=== PATIENT | female | born 1995 | race African-American/Black ===

== ENCOUNTER 2019-03-02 11:46 | Inpatient (IN) | payer OTHER ==
[~2019-03-02] VITALS: Ht 160 cm; Wt 64.4 kg
[2019-03-02] MEDS ORDERED: Lidocaine 2% Visc 15ml soln ORAL ONE (12:00)
[2019-03-02] MEDS ORDERED: Dicyclomine HCl 10mg/5ml oral soln ORAL ONE (12:00)
[2019-03-02] MEDS ORDERED: Mylanta II UD 30ml ORAL ONE (12:00)
[2019-03-02 12:36] LABS: APPEARANCE,URINE SLIGHTLY CLOUDY; BILIRUBIN, URINE NEGATIVE (NEGATIVE); GLUCOSE, URINE (UA) NEGATIVE (NEGATIVE); KETONES,URINE NEGATIVE (NEGATIVE); LEUKOCYTE ESTERASE ,URINE 1+ (NEGATIVE); NITRITE,URINE NEGATIVE (NEGATIVE); PH,URINE 5 (4.5-8.0); PROTEIN,URINE 1+ (NEGATIVE); UROBILINOGEN,URINE NORMAL MG/DL (0.0-1.0)
[2019-03-02 12:37] LABS: COLOR,URINE YELLOW
[2019-03-02 12:45] VITALS: BP 112/72
--- NOTE | 2019-03-02 12:48 | NUR ---
ED Nurse Note: PT BROUGHT IN BY R68 FROM [facility]. AOX4. PT C/O GENERALIZED ABDOMINAL PAIN, 10/10 X THIS AM ALONG WITH MULTIPLE EPISODES OF VOMITING AND DIARRHEA. LAST BM X THIS AM WHICH PT STATES WAS LIQUID. ACTIVE BOWEL SOUNDS IN ALL QUADRANTS. ABDOMEN NONDISTENDED AND NONTENDER TO PALPATION. PT STATES HER FRIEND IS HAVING SIMILAR SYMPTOMS AFTER EATING SOMETHING TOGETHER LAST NIGHT.
[2019-03-02 12:52] LABS: ANION GAP 9 mmol/L (5-15); BLOOD UREA NITROGEN 15 mg/dL (7-18); CARBON DIOXIDE 26 MMOL/L (21-32); CHLORIDE 104 MMOL/L (98-107); CREATININE 0.9 MG/DL (0.55-1.30); POTASSIUM 4.3 MMOL/L (3.5-5.1); SODIUM 139 MMOL/L (136-145)
[2019-03-02 12:57] LABS: ALANINE AMINOTRANSFERASE 26 U/L (12-78); ALBUMIN 3.8 G/DL (3.4-5.0); ALBUMIN/GLOBULIN RATIO 0.9 (1.0-2.7); ALKALINE PHOSPHATASE 75 U/L (46-116); ASPARTATE AMINO TRANSFERASE 20 U/L (15-37); BILIRUBIN,TOTAL 0.5 MG/DL (0.2-1.0)
[2019-03-02 13:06] LABS: HEMATOCRIT 41.7 % (37.0-47.0); HEMOGLOBIN 13.3 G/DL (12.0-16.0); MEAN CORPUSCULAR VOLUME 88 FL (80-99); PLATELET COUNT 185 K/UL (150-450); RED BLOOD COUNT 4.75 M/UL (4.20-5.40); RED CELL DISTRIBUTION WIDTH 12.6 % (11.6-14.8); WHITE BLOOD COUNT 13.2 K/UL (4.8-10.8)
[2019-03-02] MEDS ORDERED: Morphine Sulfate 4mg/ml Inj (IV USE ONLY) IVP ONE (13:45)
--- NOTE | 2019-03-02 14:09 | Emergency Room Report ---
History of Present Illness General Chief Complaint: Abdominal Pain Source: Patient (Cleveland Treviño MD) Present Illness HPI 23-year-old female came in by EMS because of abdominal pain with vomiting and diarrhea. Symptoms started this morning. Pain is dull, 6 out of 10, nonradiating. Notes multiple episodes of vomiting and diarrhea. States that her family members also have similar symptoms. Denies fevers or chills. Denies recent antibiotic use. Denies recent travel. No other aggravating relieving factors. Denies any other associated symptoms (Cleveland Treviño MD) Allergies: Coded Allergies: No Known Allergies (Unverified , 03/02/19) Patient History Past Medical History: other - pancreatitis Past Surgical History: none Pertinent Family History: none Social History: Denies: smoking, alcohol use, drug use Now: No Immunizations: UTD Reviewed Nursing Documentation: PMH: Agreed; PSxH: Agreed (Cleveland Treviño MD) Nursing Documentation-PMH Past Medical History: No Stated History Hx Gastrointestinal Problems: Yes - Pancreatitis (Cleveland Treviño MD) Review of Systems All Other Systems: negative except mentioned in HPI (Cleveland Treviño MD) Physical Exam Vital Signs Date Time Temp Pulse Resp B/P (MAP) Pulse Ox O2 Delivery O2 Flow Rate FiO2 03/02/19 11:40 97.7 76 16 106/66 97 Room Air Sp02 EP Interpretation: reviewed, normal General Appearance: no apparent distress, alert, GCS 15, non-toxic Head: normocephalic, atraumatic Eyes: bilateral eye normal inspection, bilateral eye PERRL ENT: hearing grossly normal, normal pharynx, no angioedema, normal voice Neck: full range of motion, supple/symm/no masses Respiratory: chest non-tender, lungs clear, normal breath sounds, speaking full sentences Cardiovascular #1: regular rate, rhythm, no edema Cardiovascular #2: 2+ carotid (R), 2+ carotid (L), 2+ radial (R), 2+ radial (L) , 2+ dorsalis pedis (R), 2+ dorsalis pedis (L) Gastrointestinal: normal bowel sounds, soft, non-distended, no guarding, no rebound, tenderness - epigastric Rectal: deferred Genitourinary: normal inspection, no CVA tenderness Musculoskeletal: back normal, gait/station normal, normal range of motion, non- tender Neurologic: alert, oriented x3, responsive, motor strength/tone normal, sensory intact, speech normal Psychiatric: judgement/insight normal, memory normal, mood/affect normal, no suicidal/homicidal ideation Reflexes: 3+ bicep (R), 3+ bicep (L), 3+ tricep (R), 3+ tricep (L), 3+ knee (R) , 3+ knee (L) Skin: normal color, no rash, warm/dry, well hydrated Lymphatic: no adenopathy (Cleveland Treviño MD) Medical Decision Making Diagnostic Impression: Primary Impression: Pancreatitis Additional Impression: Gastroenteritis Labs Test 03/02/19 10:05 White Blood Count 13.2 K/UL (4.8-10.8) Red Blood Count 4.75 M/UL (4.20-5.40) Hemoglobin 13.3 G/DL (12.0-16.0) Hematocrit 41.7 % (37.0-47.0) Mean Corpuscular Volume 88 FL (80-99) Mean Corpuscular Hemoglobin 28.1 PG (27.0-31.0) Mean Corpuscular Hemoglobin Concent 32.0 G/DL (32.0-36.0) Red Cell Distribution Width 12.6 % (11.6-14.8) Platelet Count 185 K/UL (150-450) Mean Platelet Volume 6.4 FL (6.5-10.1) Neutrophils (%) (Auto) % (45.0-75.0) Lymphocytes (%) (Auto) % (20.0-45.0) Monocytes (%) (Auto) % (1.0-10.0) Eosinophils (%) (Auto) % (0.0-3.0) Basophils (%) (Auto) % (0.0-2.0) Differential Total Cells Counted 100 Neutrophils % (Manual) 86 % (45-75) Lymphocytes % (Manual) 9 % (20-45) Monocytes % (Manual) 5 % (1-10) Eosinophils % (Manual) 0 % (0-3) Basophils % (Manual) 0 % (0-2) Band Neutrophils 0 % (0-8) Platelet Estimate Adequate Platelet Morphology Normal Red Blood Cell Morphology Normal Urine Color Yellow Urine Appearance Slightly cloudy Urine pH 5 (4.5-8.0) Urine Specific [place] 1.025 (1.005-1.035) Urine Protein 1+ (NEGATIVE) Urine Glucose (UA) Negative (NEGATIVE) Urine Ketones Negative (NEGATIVE) Urine Blood 5+ (NEGATIVE) Urine Nitrite Negative (NEGATIVE) Urine Bilirubin Negative (NEGATIVE) Urine Urobilinogen Normal MG/DL (0.0-1.0) Urine Leukocyte Esterase 1+ (NEGATIVE) Urine RBC 5-10 /HPF (0 - 2) Urine WBC 2-4 /HPF (0 - 2) Urine Squamous Epithelial Cells Moderate /LPF (NONE/OCC) Urine Bacteria Few /HPF (NONE) Urine HCG, Qualitative Negative (NEGATIVE) Sodium Level 139 MMOL/L (136-145) Potassium Level 4.3 MMOL/L (3.5-5.1) Chloride Level 104 MMOL/L (98-107) Carbon Dioxide Level 26 MMOL/L (21-32) Anion Gap 9 mmol/L (5-15) Blood Urea Nitrogen 15 mg/dL (7-18) Creatinine 0.9 MG/DL (0.55-1.30) Estimat Glomerular Filtration Rate > 60 mL/min (>60) Glucose Level 88 MG/DL (74-106) Calcium Level 9.0 MG/DL (8.5-10.1) Total Bilirubin 0.5 MG/DL (0.2-1.0) Aspartate Amino Transf (AST/SGOT) 20 U/L (15-37) Alanine Aminotransferase (ALT/SGPT) 26 U/L (12-78) Alkaline Phosphatase 75 U/L (46-116) Total Protein 7.9 G/DL (6.4-8.2) Albumin 3.8 G/DL (3.4-5.0) Globulin 4.1 g/dL Albumin/Globulin Ratio 0.9 (1.0-2.7) Lipase 627 U/L (73-393) Human Chorionic Gonadotropin, Qual Negative (NEGATIVE) (Cleveland Treviño MD) Last Vital Signs Date Time Temp Pulse Resp B/P (MAP) Pulse Ox O2 Delivery O2 Flow Rate FiO2 03/02/19 12:45 98.0 74 18 112/72 98 Room Air (Cleveland Treviño MD) Disposition: ADMITTED INPATIENT Condition: Serious Referrals: [facility] (PCP) Cleveland Treviño MD Mar 02, 2019 14:09 Julio Krause MD Mar 03, 2019 06:09
[2019-03-02] MEDS ORDERED: NKM (14:22)
[2019-03-02 14:45] VITALS: BP 108/70
--- NOTE | 2019-03-02 16:20 | NUR ---
ED Nurse Note: RAMONA AUNT: [phone]
--- NOTE | 2019-03-02 16:23 | NUR ---
ED Nurse Note: [facility] CALLED FOR PT TRANSFER. REPORT GIVEN TO KAIN HUSSEIN. PT TAKEN UP TO [facility] VIA GURNEY WITH ALL BELONGINGS. VSS.
[2019-03-02 17:00] VITALS: BP 96/67
[2019-03-02] MEDS ORDERED: Acetaminophen 500mg (ES) tab ORAL PRN (17:48)
--- NOTE | 2019-03-02 18:43 | NUR ---
NURSE NOTES: Received pt from KAIN BOYER at 1645. All admission assessments and instructions done and pt verbally confirmed to understand all. pt is alert and orient x4. pt is in RA, No SOB or acute respiratory distress noted. pt has intact iv access RAC 20g is running well. no complain of pain and nausea and vomiting and abdominal pain at this moment. called Dr ORTIZ, all admission orders noted and carried out. pt is NPO. all needs attended, bed is locked and is in the lowest position. call light within easy reach will continue to monitor.
--- NOTE | 2019-03-02 19:38 | NUR ---
HAND-OFF: Report given to KAIN OTTO.
--- NOTE | 2019-03-02 19:42 | NUR ---
NURSE NOTES: Received patient comfortably resting in bed without complaints.
[2019-03-02 20:00] VITALS: BP 90/44
[2019-03-02 23:43] VITALS: BP 97/50
--- NOTE | 2019-03-03 04:00 | NUR ---
NURSE NOTES: Patient refused IV reinsertion at this time.
[2019-03-03 04:12] VITALS: BP 102/55
[2019-03-03 07:10] LABS: BASOPHILS % (AUTO) 0.8 % (0.0-2.0); EOSINOPHILS % (AUTO) 0.8 % (0.0-3.0); HEMATOCRIT 34.6 % (37.0-47.0); HEMOGLOBIN 11.4 G/DL (12.0-16.0); LYMPHOCYTES % (AUTO) 18.8 % (20.0-45.0); MEAN CORPUSCULAR VOLUME 87 FL (80-99); MONOCYTES % (AUTO) 8.5 % (1.0-10.0); NEUTROPHILS % (AUTO) 71.2 % (45.0-75.0); PLATELET COUNT 182 K/UL (150-450); RED BLOOD COUNT 3.96 M/UL (4.20-5.40); RED CELL DISTRIBUTION WIDTH 12.1 % (11.6-14.8); WHITE BLOOD COUNT 7.3 K/UL (4.8-10.8)
--- NOTE | 2019-03-03 07:16 | NUR ---
HAND-OFF: Report given to Carloz Le RN/Lolis Negrete RN..
[2019-03-03 07:24] LABS: ALANINE AMINOTRANSFERASE 20 U/L (12-78); ALBUMIN 2.9 G/DL (3.4-5.0); ALBUMIN/GLOBULIN RATIO 0.9 (1.0-2.7); ALKALINE PHOSPHATASE 58 U/L (46-116); ANION GAP 7 mmol/L (5-15); ASPARTATE AMINO TRANSFERASE 16 U/L (15-37); BILIRUBIN,TOTAL 0.5 MG/DL (0.2-1.0); BLOOD UREA NITROGEN 8 mg/dL (7-18); CALCIUM 8.4 MG/DL (8.5-10.1); CARBON DIOXIDE 27 MMOL/L (21-32); CHLORIDE 106 MMOL/L (98-107); CREATININE 0.8 MG/DL (0.55-1.30); POTASSIUM 3.2 MMOL/L (3.5-5.1); SODIUM 140 MMOL/L (136-145)
--- NOTE | 2019-03-03 07:25 | NUR ---
NURSE NOTES: RN received pt in stable condition, sleeping in bed. No acute distress. Bed in low locked position, call light within reach. Will continue to monitor.
[2019-03-03 08:00] VITALS: BP 100/73
--- NOTE | 2019-03-03 08:54 | Diagnostic Imaging Report ---
Indication: Abdominal pain Technique: Underwood-scale and duplex images of the upper abdomen were obtained Comparison: none Findings: Gallbladder is unremarkable, without stones, wall thickening, nor pericholecystic fluid. Sonographic Tavares's sign is negative. Common bile duct measures 3 mm in diameter. No intrahepatic biliary ductal dilatation. Liver demonstrates normal echogenicity, no focal abnormality. Portal vein and hepatic veins are patent. Pancreas is unremarkable. Spleen is unremarkable. Left kidney measures 11 cm in length. Right kidney measures 11.1 cm length. Both kidneys demonstrate normal echogenicity. There is no hydronephrosis. No focal abnormality . Non-aneurysmal abdominal aorta . Impression: Negative
--- NOTE | 2019-03-03 09:39 | NUR ---
*-* INSURANCE *-* ALL AVAILABLE CLINICALS HAVE BEEN FAXED TO: [employer] (GENERIC FAX#) CHECK BAR FOR UPDATED INFO [employer] SCHWARZ F:[phone]
--- NOTE | 2019-03-03 09:42 | NUR ---
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 VOMITING . GASTROENTERITIS VS: BP 106/66, P 74, T 98.0, RR 18, SpO2 98 WBC 13.2, RBC 3.96, Hgb 11.4, Hct 34.6, K 3.2, URINE: BLOOD 5+, BACTERIA FEW IS:NS x1L IV PEPCID 20mg IVP ZOFRAN 4mg IVP MORPHINE 4mg IVP ADMITTED TO MED/SURG DC PLAN: RETURN HOME
[2019-03-03 12:00] VITALS: BP 107/59
--- NOTE | 2019-03-03 13:04 | GI Initial Consult Note ---
History of Present Illness General Date patient seen: Mar 03, 2019 Time patient seen: 12:58 Reason for Hospitalization: Abdominal Pain Referring physician: EDU ORTIZ Reason for Consultation: PANCREATITIS Present Illness HPI 23-year-old female came in by EMS because of abdominal pain with vomiting and diarrhea. Symptoms started this morning. Pain is dull, 6 out of 10, nonradiating. Notes multiple episodes of vomiting and diarrhea. States that her family members also have similar symptoms. Denies fevers or chills. Denies recent antibiotic use. Denies recent travel. No other aggravating relieving factors. Denies any other associated symptoms GI consulted for pancreatitis. Pt seen, awake A&Ox4 NAD with no complaints or current abdominal pain, N/V or diarrhea. The patient is ambulatory, had just taken a shower. The patient previous reported severe abdominal pain after eating large amounts of junk food. She denies any use of tobacco, alcohol or drug use. States no medical history. Has no history of endoscopy or colonoscopy. Presented with elevated lipase levels of 627 which have now resolved. I had advanced her diet this morning, in which she tolerated without any pain. Home Meds Reported Medications No Known Medications* (NKM - No Known Medications*) ., 0 ., 0 Refills 03/02/19 Med list reviewed/reconciled: Yes Allergies: Coded Allergies: No Known Allergies (Unverified , 03/02/19) Patient History History Provided By: Patient, Medical Record Past Medical History: none PMH Narrative Past Medical History: other - pancreatitis Past Surgical History: none Pertinent Family History: none Social History: Denies: smoking, alcohol use, drug use Now: No Immunizations: UTD Reviewed Nursing Documentation: PMH: Agreed; PSxH: Agreed Social History: Denies: smoking, alcohol use, drug use, other Review of Systems All Other Systems: negative except mentioned in HPI Physical Exam Vital Signs Date Time Temp Pulse Resp B/P (MAP) Pulse Ox O2 Delivery O2 Flow Rate FiO2 03/02/19 11:40 97.7 76 16 106/66 97 Room Air Sp02 EP Interpretation: reviewed, normal Labs Laboratory Tests Test 03/03/19 05:35 White Blood Count 7.3 K/UL (4.8-10.8) Red Blood Count 3.96 M/UL (4.20-5.40) L Hemoglobin 11.4 G/DL (12.0-16.0) L Hematocrit 34.6 % (37.0-47.0) L Mean Corpuscular Volume 87 FL (80-99) Mean Corpuscular Hemoglobin 28.8 PG (27.0-31.0) Mean Corpuscular Hemoglobin Concent 33.0 G/DL (32.0-36.0) Red Cell Distribution Width 12.1 % (11.6-14.8) Platelet Count 182 K/UL (150-450) Mean Platelet Volume 6.1 FL (6.5-10.1) L Neutrophils (%) (Auto) 71.2 % (45.0-75.0) Lymphocytes (%) (Auto) 18.8 % (20.0-45.0) L Monocytes (%) (Auto) 8.5 % (1.0-10.0) Eosinophils (%) (Auto) 0.8 % (0.0-3.0) Basophils (%) (Auto) 0.8 % (0.0-2.0) Sodium Level 140 MMOL/L (136-145) Potassium Level 3.2 MMOL/L (3.5-5.1) L Chloride Level 106 MMOL/L (98-107) Carbon Dioxide Level 27 MMOL/L (21-32) Anion Gap 7 mmol/L (5-15) Blood Urea Nitrogen 8 mg/dL (7-18) Creatinine 0.8 MG/DL (0.55-1.30) Estimat Glomerular Filtration Rate > 60 mL/min (>60) Glucose Level 82 MG/DL (74-106) Calcium Level 8.4 MG/DL (8.5-10.1) L Total Bilirubin 0.5 MG/DL (0.2-1.0) Aspartate Amino Transf (AST/SGOT) 16 U/L (15-37) Alanine Aminotransferase (ALT/SGPT) 20 U/L (12-78) Alkaline Phosphatase 58 U/L (46-116) Total Protein 6.3 G/DL (6.4-8.2) L Albumin 2.9 G/DL (3.4-5.0) L Globulin 3.4 g/dL Albumin/Globulin Ratio 0.9 (1.0-2.7) L Lipase 83 U/L (73-393) General Appearance: well appearing, no apparent distress, alert Head: normocephalic EENT: PERRL/EOMI, normal ENT inspection Neck: supple Respiratory: normal breath sounds, no respiratory distress Cardiovascular: normal rate Gastrointestinal: normal inspection, non tender, soft, normal bowel sounds, non -distended Rectal: deferred Genitourinary: no CVA tenderness Musculoskeletal: normal inspection, back normal Neurologic: normal inspection, alert, oriented x3, responsive Psychiatric: normal inspection, judgement/insight normal, memory normal Skin: normal inspection, normal color, no rash, warm/dry, palpation normal, well hydrated Lymphatic: normal inspection, no adenopathy Current Medications Current Medications Medications (Trade) Dose Ordered Sig/Cuca Route PRN Reason Start Time Stop Time Status Last Admin Dose Admin Acetaminophen (Tylenol) 500 mg Q6H PRN ORAL Mild Pain/Temp > 100.5 03/02/19 17:48 04/01/19 17:47 Potassium Chloride (K-Dur) 40 meq ONCE ORAL 03/03/19 11:45 03/03/19 13:30 Sodium Chloride 1,000 ml @ 75 mls/hr [id number] IV 03/02/19 18:30 04/01/19 18:29 03/02/19 17:55 GI: Plan Problems: (1) Pancreatitis (2) Gastroenteritis Plan pancreatitis, elevated lipase levels now resolved patient tolerated regular diet Hcg negative utox pending okay for DC per GI standpoint symptomatic treatment regular diet pain mgmt ppi healthy diet education given electrolyte correction Discussed with Dr. Richards. Thank you for this patient referral, we will follow. The patient was seen and examined at bedside and all new and available data was reviewed in the patients chart. I agree with the above findings, impression and plan. (Patient seen earlier today. Signature stamp does not reflect patient encounter time.). - MD Nelida [facility] UTIL[facility] REVIEW NURSE Mar 03, 2019 13:04
[2019-03-03 16:00] VITALS: BP 105/68
--- NOTE | 2019-03-03 19:24 | NUR ---
HAND-OFF: Report given to KAIN Sy.
--- NOTE | 2019-03-03 19:34 | NUR ---
NURSE NOTES: Lab called and reported a positive urine screen for THC, Dr. Payton notified, left message, no new orders received at this time.
--- NOTE | 2019-03-03 19:35 | NUR ---
NURSE NOTES: Received patient in no apparent distress. A&OX4. No IV site noted. No c/o pain at this time. Patient says " I feel much better now". Bed in lowest position. Call light within reach. Will continue to monitor.
[2019-03-03 20:00] VITALS: BP 136/87
--- NOTE | 2019-03-03 23:20 | NUR ---
NURSE NOTES: New IV inserted. Right AC G24, patent and intact.
--- NOTE | 2019-03-03 23:30 | Consultation ---
DATE OF CONSULTATION: 03/03/2019 INFECTIOUS DISEASE CONSULTATION CONSULTING PHYSICIAN: Jay Myers M.D. PRIMARY ATTENDING PHYSICIAN: Renata Payton M.D. REASON FOR CONSULT: Acute pancreatitis. HISTORY OF PRESENT ILLNESS: This is a 23-year-old female admitted yesterday from home complaining of nausea, vomiting, abdominal pain, and diarrhea. The patient states that in the past, she had history of pancreatitis. Today, she is feeling much better and can tolerate food. PAST MEDICAL HISTORY: As mentioned acute pancreatitis. MEDICATIONS: Getting sodium chloride and Tylenol. ALLERGIES: No known drug allergies. SOCIAL HISTORY: Single. Denies alcohol, drug, or smoking. REVIEW OF SYSTEMS: Denies fever, chills, or coughing. Nausea and vomiting resolved today. No vomiting today. No significant pain at the time of examination. No urinary problem. PHYSICAL EXAMINATION: VITAL SIGNS: Temperature 98.2, pulse 63, and blood pressure is 100/73. GENERAL APPEARANCE: Well-developed, no acute distress. HEAD AND NECK: Suring conjunctiva. HEART: Normal rate. LUNGS: Clear. ABDOMEN: Soft and nontender. EXTREMITIES: No edema. LABORATORY AND DIAGNOSTIC DATA: WBC today 7.2 coming from , hemoglobin , hematocrit 34.6, and platelets is 82,000. Sodium 140, potassium 3.2, chloride 106, bicarbonate 22, BUN 8, creatinine 0.8, and glucose is 82. Albumin is 2.9. Lipase was 627 at the time of admission that is back to normal limits. UA showed wbc's of 2 to 4. Abdominal ultrasound was negative. IMPRESSION: Acute pancreatitis that is resolving. RECOMMENDATION: Observe off antibiotic. I agree with discharge to home as suggested by GI specialist. At the end of my exam, I thank Dr. Payton for involving me in the care of this patient. Jay Myers M.D. DR: MAC JOB#: [id number] CC: ATTILA
[2019-03-04] VITALS: BP 103/60
--- NOTE | 2019-03-04 02:00 | NUR ---
NURSE NOTES: Patient removed IV. Patient says "It bothers me. I don't want that". Nurse explained risk and benefit but still refused. Patient A&OX4.
[2019-03-04 04:00] VITALS: BP 95/51
--- NOTE | 2019-03-04 06:34 | Emergency Room Report ---
Physical Exam Vital Signs Date Time Temp Pulse Resp B/P (MAP) Pulse Ox O2 Delivery O2 Flow Rate FiO2 03/02/19 11:40 97.7 76 16 106/66 97 Room Air Medical Decision Making Diagnostic Impression: Primary Impression: Pancreatitis Qualified Codes: K85.90 - Acute pancreatitis without necrosis or infection, unspecified Additional Impression: Gastroenteritis ER Course Hospital Course 23-year-old female presents to ED with abdominal pain, vomiting Differential diagnoses include: BPH, cystitis, pyelonephritis, kidney stone Clinical course Patient placed on stretcher. manager monitoring. After initial history and physical I ordered labs, IV fluids, UA, pain medication Labs - no leukocytosis, Hb/Hct stable. electrolytes ok. Lipase > 600, LFTs ok Patient continues to have nausea and vomiting. Patient will be admitted I feel this is a highly complex case requiring extensive working including EKG/ Rhythm strip, Xray/CT/US, Blood/urine lab work, repeat exams while in ED, and administration of strong opiates/narcotics for pain control, admission to hospital or close patient follow up. Diagnosis - acute pancreatitis, gastroenteritis Patient admitted to floor in serious condition Labs Test 03/02/19 10:05 03/03/19 05:35 03/03/19 18:20 White Blood Count 13.2 K/UL (4.8-10.8) 7.3 K/UL (4.8-10.8) Red Blood Count 4.75 M/UL (4.20-5.40) 3.96 M/UL (4.20-5.40) Hemoglobin 13.3 G/DL (12.0-16.0) 11.4 G/DL (12.0-16.0) Hematocrit 41.7 % (37.0-47.0) 34.6 % (37.0-47.0) Mean Corpuscular Volume 88 FL (80-99) 87 FL (80-99) Mean Corpuscular Hemoglobin 28.1 PG (27.0-31.0) 28.8 PG (27.0-31.0) Mean Corpuscular Hemoglobin Concent 32.0 G/DL (32.0-36.0) 33.0 G/DL (32.0-36.0) Red Cell Distribution Width 12.6 % (11.6-14.8) 12.1 % (11.6-14.8) Platelet Count 185 K/UL (150-450) 182 K/UL (150-450) Mean Platelet Volume 6.4 FL (6.5-10.1) 6.1 FL (6.5-10.1) Neutrophils (%) (Auto) % (45.0-75.0) 71.2 % (45.0-75.0) Lymphocytes (%) (Auto) % (20.0-45.0) 18.8 % (20.0-45.0) Monocytes (%) (Auto) % (1.0-10.0) 8.5 % (1.0-10.0) Eosinophils (%) (Auto) % (0.0-3.0) 0.8 % (0.0-3.0) Basophils (%) (Auto) % (0.0-2.0) 0.8 % (0.0-2.0) Differential Total Cells Counted 100 Neutrophils % (Manual) 86 % (45-75) Lymphocytes % (Manual) 9 % (20-45) Monocytes % (Manual) 5 % (1-10) Eosinophils % (Manual) 0 % (0-3) Basophils % (Manual) 0 % (0-2) Band Neutrophils 0 % (0-8) Platelet Estimate Adequate Platelet Morphology Normal Red Blood Cell Morphology Normal Urine Color Yellow Urine Appearance Slightly cloudy Urine pH 5 (4.5-8.0) Urine Specific [place] 1.025 (1.005-1.035) Urine Protein 1+ (NEGATIVE) Urine Glucose (UA) Negative (NEGATIVE) Urine Ketones Negative (NEGATIVE) Urine Blood 5+ (NEGATIVE) Urine Nitrite Negative (NEGATIVE) Urine Bilirubin Negative (NEGATIVE) Urine Urobilinogen Normal MG/DL (0.0-1.0) Urine Leukocyte Esterase 1+ (NEGATIVE) Urine RBC 5-10 /HPF (0 - 2) Urine WBC 2-4 /HPF (0 - 2) Urine Squamous Epithelial Cells Moderate /LPF (NONE/OCC) Urine Bacteria Few /HPF (NONE) Urine HCG, Qualitative Negative (NEGATIVE) Sodium Level 139 MMOL/L (136-145) 140 MMOL/L (136-145) Potassium Level 4.3 MMOL/L (3.5-5.1) 3.2 MMOL/L (3.5-5.1) Chloride Level 104 MMOL/L (98-107) 106 MMOL/L (98-107) Carbon Dioxide Level 26 MMOL/L (21-32) 27 MMOL/L (21-32) Anion Gap 9 mmol/L (5-15) 7 mmol/L (5-15) Blood Urea Nitrogen 15 mg/dL (7-18) 8 mg/dL (7-18) Creatinine 0.9 MG/DL (0.55-1.30) 0.8 MG/DL (0.55-1.30) Estimat Glomerular Filtration Rate > 60 mL/min (>60) > 60 mL/min (>60) Glucose Level 88 MG/DL (74-106) 82 MG/DL (74-106) Calcium Level 9.0 MG/DL (8.5-10.1) 8.4 MG/DL (8.5-10.1) Total Bilirubin 0.5 MG/DL (0.2-1.0) 0.5 MG/DL (0.2-1.0) Aspartate Amino Transf (AST/SGOT) 20 U/L (15-37) 16 U/L (15-37) Alanine Aminotransferase (ALT/SGPT) 26 U/L (12-78) 20 U/L (12-78) Alkaline Phosphatase 75 U/L (46-116) 58 U/L (46-116) Total Protein 7.9 G/DL (6.4-8.2) 6.3 G/DL (6.4-8.2) Albumin 3.8 G/DL (3.4-5.0) 2.9 G/DL (3.4-5.0) Globulin 4.1 g/dL 3.4 g/dL Albumin/Globulin Ratio 0.9 (1.0-2.7) 0.9 (1.0-2.7) Lipase 627 U/L (73-393) 83 U/L (73-393) Human Chorionic Gonadotropin, Qual Negative (NEGATIVE) Urine Opiates Screen Negative (NEGATIVE) Urine Barbiturates Screen Negative (NEGATIVE) Phencyclidine (PCP) Screen Negative (NEGATIVE) Urine Amphetamines Screen Negative (NEGATIVE) Urine Benzodiazepines Screen Negative (NEGATIVE) Urine Cocaine Screen Negative (NEGATIVE) Urine Marijuana (THC) Screen Positive (NEGATIVE) Last Vital Signs Date Time Temp Pulse Resp B/P (MAP) Pulse Ox O2 Delivery O2 Flow Rate FiO2 03/04/19 04:00 98.0 64 18 95/51 (66) 96 03/03/19 21:00 Room Air Status: improved Disposition: ADMITTED INPATIENT Condition: Serious [facility]errals: [facility]P) Cleveland Treviño MD Mar 04, 2019 06:34
--- NOTE | 2019-03-04 07:30 | NUR ---
HAND-OFF: Report given to Cindy FALL.
--- NOTE | 2019-03-04 10:15 | History and Physical Report ---
DATE OF ADMISSION: 03/02/2019 HISTORY OF PRESENT ILLNESS: The patient is admitted for pancreatitis, leukocytes and vomiting. The patient is complaining of abdominal pain, diarrhea, and vomiting for the past one day and has chronic back pain. She is admitted for those reasons. It has been going on for about one day. The patient . Denies alcohol abuse. Denies history of gallstone. PAST MEDICAL HISTORY: None. PAST SURGICAL HISTORY: None. ALLERGIES: None. MEDICATIONS: None. FAMILY HISTORY: Noncontributory. SOCIAL HISTORY: Denies history of smoking, alcohol, or illicit drugs. REVIEW OF SYSTEMS: HEENT: Denies headaches. RESPIRATORY: Denies shortness of breath. Denies cough. CARDIOVASCULAR: Denies chest pain. Denies orthopnea. GASTROINTESTINAL: Reports of abdominal pain, diarrhea, and nausea for one day. EXTREMITIES: Has pain and does have chronic back pain. CENTRAL NERVOUS SYSTEM: No change in vision or speech pattern. PHYSICAL EXAMINATION: VITAL SIGNS: Temperature 98.2, pulse 63, and blood pressure 100/70. HEENT: PERRLA. NECK: Supple. No lymphadenopathy. CHEST: Clear to auscultation. CARDIOVASCULAR: Regular rate and rhythm. No murmurs or extra sounds. GASTROINTESTINAL: Has diffuse abdominal tenderness, however, no rebound. Abdomen is soft. No organomegaly. EXTREMITIES: No edema. Moves all four extremities. NEUROLOGIC: Sensory is intact to light touch. Reflexes equal on both sides. LABORATORY DATA: WBC of 13.2, hemoglobin of 13.3, and platelets 185. Sodium 139, potassium 4.3, BUN of 15, creatinine 0.9. Lipase of 627. ASSESSMENT AND PLAN: Pancreatitis and vomiting. Keep the patient NPO. I have consulted Dr. Myers, Dr. Richards, and Dr. Grant to see the patient has any infectious etiology as well as for dehydration as well as for pancreatitis, we will keep the patient continue with IV fluids. Renata Payton M.D. DR: KELLEN JOB#: [id number] CC:
--- NOTE | 2019-03-04 10:36 | NUR ---
TRADE SHOW COORDINATORADOLESCENT COUNSELOR SI: PANCREATITIS . VOMITING . GASTROENTERITIS VS: BP 95/51, P 64, T 98.0, RR 18, SpO2 96 IS:NS x1L IV TYLENOL 500mg MED/SURG STATUS
--- NOTE | 2019-03-04 10:39 | GI Progress Note ---
Assessment/Plan Problems: (1) Cyclic vomiting syndrome ICD Codes: G43.A0 - Cyclical vomiting, not intractable SNOMED: 01825865 (2) Pancreatitis ICD Codes: K85.90 - Acute pancreatitis without necrosis or infection, unspecified SNOMED: [id number] Qualifiers: Qualified Codes: K85.90 - Acute pancreatitis without necrosis or infection, unspecified (3) Gastroenteritis ICD Codes: K52.9 - Noninfective gastroenteritis and colitis, unspecified SNOMED: [id number] Status: stable Status Narrative Discussed with Dr. Richards. Assessment/Plan pancreatitis, elevated lipase levels now resolved patient tolerated regular diet Hcg negative utox positive for marijuana okay for DC per GI standpoint symptomatic treatment regular diet pain mgmt ppi healthy diet education given electrolyte correction The patient was seen and examined at bedside and all new and available data was reviewed in the patients chart. I agree with the above findings, impression and plan. (Patient seen earlier today. Signature stamp does not reflect patient encounter time.). - Desmond Richards MD Subjective Subjective Denies any abdominal pain Denies any nausea vomiting Ready to be discharged Objective Last 24 Hour Vital Signs Date Time Temp Pulse Resp B/P (MAP) Pulse Ox O2 Delivery O2 Flow Rate FiO2 03/04/19 09:00 Room Air 03/04/19 04:00 98.0 64 18 95/51 (66) 96 03/04/19 00:00 98.1 62 18 103/60 (74) 100 03/03/19 21:00 Room Air 03/03/19 20:00 97.6 69 18 136/87 (103) 98 03/03/19 16:00 97.5 68 19 105/68 (80) 100 03/03/19 12:54 Room Air 03/03/19 12:00 97.5 64 16 107/59 (75) 100 Intake and Output 03/03/19 03/04/19 19:00 07:00 Intake Total 650 ml 150 ml Balance 650 ml 150 ml IV Total 150 ml Other 650 ml # Voids 1 Laboratory Tests Test 03/03/19 18:20 Urine Opiates Screen Negative (NEGATIVE) Urine Barbiturates Screen Negative (NEGATIVE) Phencyclidine (PCP) Screen Negative (NEGATIVE) Urine Amphetamines Screen Negative (NEGATIVE) Urine Benzodiazepines Screen Negative (NEGATIVE) Urine Cocaine Screen Negative (NEGATIVE) Urine Marijuana (THC) Screen Positive (NEGATIVE) H Height (Feet): 5 Height (Inches): 3.00 Weight (Pounds): 142 General Appearance: WD/WN, no apparent distress, alert Cardiovascular: normal rate Respiratory/Chest: normal breath sounds, no respiratory distress Abdominal Exam: normal bowel sounds, non tender, soft Extremities: normal range of motion, non-tender Deangelo Krause NP Mar 04, 2019 10:39
--- NOTE | 2019-03-04 10:48 | NUR ---
RECEIVED PATIENT IN BED ALERT AND AWAKE.. NO RESPIRATORY DISTRESS OR SOB.. NO NAUSEAS/EMESIS.. DENIES NO ABDOMEN DISCOMFORT OR PAIN .. EAT ALL HER BREAKFAST 100%.. PATIENT PULLED OUT I.V. HEP LOCK STATED IT PAINFUL.. OFFERED TO REINSERT ANOTHER HEP LOCK IN REFUSED AND VITAL SIGNS NOTED CALL LIGHT IN REACH
[2019-03-04 12:00] VITALS: BP 112/62
--- NOTE | 2019-03-04 13:48 | NUR ---
PATIENT HAS NO IV. ACCESS REFUSED TO REINSERT OF I.V. ACCESS DENIES NO ABDOMINAL PAIN OR DISCOMFORT ATE 100% LUNCH, NO NAUSEA/EMESIS CALL LIGHT IN REACH
--- NOTE | 2019-03-04 15:09 | NUR ---
*-* INSURANCE *-* ALL AVAILABLE CLINICALS HAVE BEEN FAXED TO: [facility] (GENERIC FAX#) CHECK BAR FOR UPDATED INFO [facility]WARZ F:[phone]
--- NOTE | 2019-03-04 15:10 | NUR ---
*-* INSURANCE *-* ALL CLINICALS HAVE BEEN FAXED TO: [facility]: LINDA P- [phone] F- [phone].....REVIEW/CLINICAL
[2019-03-04 16:00] VITALS: BP 104/56
--- NOTE | 2019-03-04 16:43 | NUR ---
CALLED Charu MONTE REGARDING DISCHARGE ORDER OTHER NURSING : D/C'D HOME MEDS NO DISCHARGE ORDER AWAITING ACCOUNT SOLUTIONS ANALYST BACK
--- NOTE | 2019-03-04 17:34 | NUR ---
INFORMED PATIENT OF DISCHARGE AWAITING ON PRODUCT DEVELOPMENT ACTUARY NOTED ALL BELONGING AND DISCHARGE PAPERS READY.. NO IV. ACCESS NOTED
--- NOTE | 2019-03-04 17:41 | NUR ---
PATIENT IS STABLE NO NAUSEAS/VOMITING
--- NOTE | 2019-03-04 17:48 | NUR ---
NOTIFIED SENIOR ANALYST DEVELOPER PATIENT NEED TAXI SERVICE NOTED.. DUE TO NO TRANSPORTATION TO HOME PER PATIENT
--- NOTE | 2019-03-04 18:04 | NUR ---
AWAITING ON TAXI WILL ARRIVE IN 15 MINS NOTED PATIENT IS DRESSED AND READY TO GO HOME
--- NOTE | 2019-03-08 08:58 | Discharge Summary ---
Discharge Summary Discharge Summary _ DATE OF ADMISSION: 03/02/2019 DATE OF DISCHARGE: 03/04/2019 DISCHARGED BY: Dr. Renata Davies CONSULTANTS: Dr. Flaquita Myers BRIEF HOSPITAL COURSE: Patient is a 23-year-old female, who was brought to ED via EMS due to abdominal pain, with vomiting and diarrhea. Symptoms started on the morning of admission. Pain was described to be dull, 6 out of 10 and nonradiating. She had multiple episodes of vomiting and diarrhea. She stated family members also had similar symptoms. She denied fever or chills. Denied any recent antibiotic use. Denies any recent travel. She had a prior history of pancreatitis. On evaluation at the ED, blood pressure was stable. WBC was 13, hemoglobin and hematocrit were stable. Electrolytes were normal. LFTs normal. Lipase was elevated to 627. Urinalysis with +1 leukocyte esterase, 5-10 RBC, 2-4 WBC. Urine hCG was negative. She continued to have nausea and vomiting. She was then admitted for acute pancreatitis, possible gastroenteritis. She was placed on n.p.o. She was given IV hydration. She was given bowel regimen. Following day, lipase normalized. Diet was advanced. Abdominal ultrasound was negative. Urine toxicology was positive for marijuana. She was able to tolerate regular diet. Leukocytosis resolved. She was eventually discharged home. FINAL DIAGNOSES: Acute pancreatitis, resolved Noninfective gastroenteritis Cyclic vomiting syndrome DISPOSITION: Patient was discharged home. DISCHARGE INSTRUCTIONS: Follow-up in a week. I have been assigned to complete a discharge summary on this account, I was not involved with the patient's management. Nancy Hilton NP Mar 08, 2019 08:58
== END 2019-03-04 18:30 | disposition home or self-care (01) | DRG 282 ==
LOC: EDBD 11:46 → EMR 12:10 → 4E 15:44 → EDBEDREQ 16:11
DX: K85.90 Acute pancreatitis without necrosis or infection, unspecified (principal); K31.89 Other diseases of stomach and duodenum; K52.9 Noninfective gastroenteritis and colitis, unspecified; R11.10 Vomiting, unspecified
CPT/HCPCS: 36415; 76700; 80053; 80307; 81003; 81025; 83690; 84703; 85007; 85025; 96361; 96374; 96375; 99285; J2405; J8499